=== PATIENT | female | born 1930 | race Caucasian/White ===

== ENCOUNTER 2016-08-21 14:10 | Emergency (ER) | payer MEDICAID, MEDICARE ==
[2016-08-21] MEDS ORDERED: NEOMYCIN SU/BACITRAC ZN/POLY 1 EACH OINT.PACK TP ONE (14:38)
[2016-08-21] MEDS ORDERED: DIPH,PERTUSS(ACELL),TET VAC/PF 0.5 ML DISP.SYRIN IM ONE (14:40)
--- NOTE | 2016-08-21 14:42 | ED Physician Documentation ---
Fall - HPI Stated Complaint: fall Chief Complaint: Fall Additional Information: Stumbled coming out of restaurant and hit left forehead, left knee. No LOC. Walking as usual. Takes no medications. - ROS CONST: no problems NEURO: denies: dizziness MS/SKIN/LYMPH: denies: weakness, numbness - PAST HX Past History: none Allergies/Adverse Reactions: Allergies Allergy/AdvReac Type Severity Reaction Status Date / Time No Known Allergies Allergy Verified 08/21/16 14:26 Home Medications: Ambulatory Orders Medication Instructions Recorded NK [NK] 08/21/16 - SOCIAL HX Smoking History: non-smoker - FAMILY HX Family History: no significant history - VITAL SIGNS Vital Signs: Vital Signs Temp Pulse Resp BP Pulse Ox 97.9 F 79 18 201/96 96 08/21/16 14:29 08/21/16 14:29 08/21/16 14:29 08/21/16 14:29 08/21/16 14:29 - REVIEWED ASSESSMENTS Nursing Assessment Reviewed: Yes Vitals Reviewed: Yes Progress - Progress Progress: CT brain History: PT FELL AND HIT HEAD ON CONCRETE TODAY. SWELLING AND BRUISING ON LEFT SIDE OF FOREHEAD Top of multiple axial images of the brain are submitted Findings: No comparison studies Dental hardware causes artifact Vascular, dural calcification Patient is asymmetrically positioned Soft tissue swelling and hematoma is noted in the left frontal region, measures approximately 6.5 x 5.8 x 1.3 cm No evidence of acute intracranial hemorrhage. No midline shift. Cerebral atrophy. 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 No evidence of acute intracranial hemorrhage. No midline shift. 2.Cerebral atrophy 3.Patient is asymmetrixally positioned. 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 BRUISING AND SWELLING ON LEFT SIDE OF FOREHEAD Findings: Comparison: none Bones are demineralized No obvious evidence of acute fracture or dislocation of the cervical spine. Artifact is noted across the upper cervical spine on both the reformatted series limiting evaluation Cervical spine degenerative changes are worst from C4-C7 levels with intervertebral disc space narrowing, osteophytes, facet arthropathy Vascular calcification is seen in the neck Hypodense lesion left lobe of thyroid gland Dental hardware causes artifact. No prevertebral hematoma Impression: 1. Artifacts limit the study 2. No obvious evidence of acute fracture or dislocation of the cervical spine. No prevertebral hematoma 3. Multilevel degenerative changes are worst from C4 through C7 levels Electronically signed on Aug 21, 2016 3:36:28 PM TOOL ROOM SUPERVISOR by: Socorro Maurer ED Results Lab/Radiology - Orders Orders: ED Orders Category Date Time Status Apply occlusive dressing D Care 08/21/16 14:38 Ordered Diph,Pertuss(Acell),Tet Vac/Pf [Adacel] Med 08/21/16 14:40 Once 0.5 ml IM .ONCE ONE Neomycin Harris/Bacitrac Zn/Poly [Triple Antibiotic Med 08/21/16 14:38 Once Ointment] 1 each TP NOW ONE Fall Physical Exam - Physical Exam General Appearance: no acute distress, alert Head: trauma (5 cm diameter swelling left forehead, 1 cm elevation centrally; superficial abrasion 1x4 cm ) Neck: non-tender, pain with neck movement (verbalizes mild discomfort "from left to right" in the back of her neck) Eye: KELECHI, EOMI, lids & conjunct. nml ENT: nml external inspection, no dental injury, airway nml Resp/CVS: chest non-tender, breath sounds nml, heart sounds nml Abdomen: normal bowel sounds, no distension, non-tender Neuro: CN's nml as tested, sensation nml, motor nml, mood/affect nml (pleasant, joking), other (reflexes 2+) Skin: color nml, warm, dry, other (Two 1 cm diameter superficial abrasions left knee) Back: normal inspection (thoracic kyphosis), no vertebral tenderness Extremities: pelvis stable, no pedal edema, nml ROM Joint: joints nml, nml ROM (gait and stance) Discharge Clincal Impression: Abrasion of skin Fall Qualifiers: Encounter type: initial encounter Qualified Code(s): W19.XXXA - Unspecified fall, initial encounter Contusion of head Qualifiers: Encounter type: initial encounter Contusion of head detail: other part of head Qualified Code(s): S00.83XA - Contusion of other part of head, initial encounter Referrals: Primary Doctor,No [Primary Care Provider] - 2 Days Additional Instructions: Return to the ER immediately if you develop prolonged vomiting or unusual behavior. Home Medications: Ambulatory Orders NK [NK] 08/21/16 Condition: Good Disposition: 01 HOME, SELF-CARE Decision to Admit: NO Decision Time: 15:37
[2016-08-21 15:48] VITALS: BP 179/82
--- NOTE | 2016-08-21 17:09 | Diagnostic Imaging Report ---
[facility] [address] [facility] [address] [place] [address]. [id number] Report Submission Date: Aug 21, 2016 3:29:04 PM AMBULANCE MECHANIC Patient Study Name: RAUL GUADARRAMA Date: Aug 21, 2016 3:07:39 PM AMBULANCE MECHANIC Modality Type: CT\SR Gender: F Description: CT BRAIN W/O CONTRAST : 31 Institution: [facility] Physician: NEHEMIAH SANFORD CT brain History: PT FELL AND HIT HEAD ON CONCRETE TODAY. SWELLING AND BRUISING ON LEFT SIDE OF FOREHEAD Top of multiple axial images of the brain are submitted Findings: No comparison studies Dental hardware causes artifact Vascular, dural calcification Patient is asymmetrically positioned Soft tissue swelling and hematoma is noted in the left frontal region, measures approximately 6.5 x 5.8 x 1.3 cm No evidence of acute intracranial hemorrhage. No midline shift. Cerebral atrophy. 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 No evidence of acute intracranial hemorrhage. No midline shift. 2.Cerebral atrophy 3.Patient is asymmetrixally positioned. 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
--- NOTE | 2016-08-21 17:10 | Diagnostic Imaging Report ---
[facility] [address] [facility] [address] [place], [place]. [address] Report Submission Date: Aug 21, 2016 3:36:28 PM RADIUS CORNER MACHINE OPERATOR Patient Study Name: RAUL GUADARRAMA Date: Aug 21, 2016 3:04:50 PM RADIUS CORNER MACHINE OPERATOR Modality Type: CT\SR Gender: F Description: CT C-SPINE W/O CONTRAS : 31 Institution: [facility] Physician: NEHEMIAH SANFORD CT cervical spine History: FALL ONTO CONCRETE TODAY. BRUISING AND SWELLING ON LEFT SIDE OF FOREHEAD Findings: Comparison: none Bones are demineralized No obvious evidence of acute fracture or dislocation of the cervical spine. Artifact is noted across the upper cervical spine on both the reformatted series limiting evaluation Cervical spine degenerative changes are worst from C4-C7 levels with intervertebral disc space narrowing, osteophytes, facet arthropathy Vascular calcification is seen in the neck Hypodense lesion left lobe of thyroid gland Dental hardware causes artifact. No prevertebral hematoma Impression: 1. Artifacts limit the study 2. No obvious evidence of acute fracture or dislocation of the cervical spine. No prevertebral hematoma 3. Multilevel degenerative changes are worst from C4 through C7 levels Electronically signed on Aug 21, 2016 3:36:28 PM RADIUS CORNER MACHINE OPERATOR by: Socorro THOMAS
== END 2016-08-21 15:46 | disposition home or self-care (01) ==
LOC: ED 14:10
DX: S00.83XA Contusion of other part of head, initial encounter (principal); W19.XXXA Unspecified fall, initial encounter; Y93.9 Activity, unspecified; Y99.9 Unspecified external cause status
CPT/HCPCS: 70450; 72125; 90471; 90715; 99283

== ENCOUNTER 2018-07-08 10:00 | Outpatient (CLI) | payer MEDICARE ==
--- NOTE | 2018-07-08 16:41 | Diagnostic Imaging Report ---
AKIRA OCAMPO [facility] [address] [facility] [address] [place] [address]. [id number] Report Submission Date: Jul 08, 2018 1:47:56 PM WELL DRILL OPERATOR CABLE TOOL Patient Study Name: RAUL GUADARRAMA Date: Jul 08, 2018 10:36:39 AM WELL DRILL OPERATOR CABLE TOOL Modality Type: DX Gender: F Description: PELVIS : 31 Institution: [facility] Physician: AKIRA OCAMPO 2 views of the left hip History: LEFT HIP PAIN POST FALL no prior comparison studies No obvious evidence of acute fracture or dislocation of the left hip. Bones are demineralized. Vague sclerotic density is noted at the left acetabular region, questionably related to bone island. Large amount of stool in the pelvis Impression: No evidence of acute fracture or dislocation of the left hip. Electronically signed on Jul 08, 2018 1:47:56 PM WELL DRILL OPERATOR CABLE TOOL by: Socorro THOMAS
--- NOTE | 2018-07-08 16:42 | Diagnostic Imaging Report ---
AKIRA OCAMPO [facility] [address] [facility] [address] [place] [address]. [id number] Report Submission Date: Jul 08, 2018 1:53:11 PM DEPARTMENT CHAIR Patient Study Name: RAUL GUADARRAMA Date: Jul 08, 2018 10:36:39 AM DEPARTMENT CHAIR Modality Type: DX Gender: F Description: SPINE : 31 Institution: [facility] Physician: AKIRA OCAMPO 3 views of the lumbar spine History: LOWER BACK PAIN POST FALL no comparison studies A large amount of stool and bowel is gas limits evaluation of the lumbar spine and the sacrum. Within this limitation, no obvious evidence of acute fracture or dislocation. Multilevel degenerative changes are seen in the lower thoracic and throughout the lumbar spine. There is intervertebral disc space narrowing at L5-S1 with posterior facet arthropathy from L4 to S1 Loss of height of L1 through L3 vertebral bodies, chronicity is not known.. Vascular calcification is present. Mild curvature of the thoracolumbar spine Impression: 1. Study is limited due to extensive bowel gas and feces. Within this limitation, no obvious acute fracture or dislocation. 2. Extensive multilevel degenerative changes. Loss of height of L1 through L3 vertebral bodies, chronicity is not known. 3. Facet arthropathy L4 to S1. Loss of intervertebral disc space L5-S1. Vascular calcification. Consider cross-sectional imaging as needed. Electronically signed on Jul 08, 2018 1:53:11 PM DEPARTMENT CHAIR by: Socorro THOMAS
--- NOTE | 2018-07-08 16:42 | Diagnostic Imaging Report ---
AKIRA OCAMPO [facility] [address] [facility] [address] [address] Report Submission Date: Jul 08, 2018 1:56:52 PM BENCH TECHNICIAN Patient Study Name: RAUL GUADARRAMA Date: Jul 08, 2018 10:47:53 AM BENCH TECHNICIAN Modality Type: DX Gender: F Description: SHOULDER : 32 Institution: [facility] Physician: AKIRA OCAMPO 3 views of the right shoulder History: RIGHT SHOULDER PAIN POST FALL No comparison studies No obvious evidence of acute fracture or dislocation of the right shoulder. Degenerative changes are noted at the acromioclavicular joint Impression: Intact right shoulder. Degenerative changes of right acromioclavicular joint Electronically signed on Jul 08, 2018 1:56:52 PM BENCH TECHNICIAN by: Socorro THOMAS
== END 2018-07-08 10:03 ==
LOC: RAD 10:00
PROVIDERS: ATTEND Family Medicine
DX: M25.552 Pain in left hip (principal); M54.5 Low back pain; M25.511 Pain in right shoulder; M47.816 Spondylosis without myelopathy or radiculopathy, lumbar region; M12.88 Other specific arthropathies, not elsewhere classified, other specified site; M19.011 Primary osteoarthritis, right shoulder
CPT/HCPCS: 72100; 73030